=== PATIENT | female | born 1985 | race Caucasian/White ===

== ENCOUNTER 2017-03-06 09:49 | Outpatient (CLI) | payer BC ==
--- NOTE | 2017-03-06 12:47 | MRI ---
BRAIN MRI WITH AND WITHOUT CONTRAST: CLINICAL HISTORY: Headache. COMPARISON: No prior comparison. FINDINGS: There is no acute territorial infarction, intracranial mass effect, midline shift, or ventriculomega ly. No hemorrhagic susceptibility present. No evidence of significant signal abnormality of the br ain parenchyma. There are no enhancing intraaxial lesions. There is prominent, circumferential muc osal thickening of the left maxillary sinus with associated enhancement, as well as multifocal ethmo id air cell opacification and enhancement. Mild mucosal inflammation also seen within the frontal a nd sphenoid sinuses. There are bilateral opacified mastoid air cells. IMPRESSION: 1. No acute intracranial abnormalities. 2. Prominent mucosal inflammation with associated complex enhancement, notably involving the left m axillary sinus. Correlate clinically. POS: [facility]
[2017-03-06] MEDS ORDERED: Gadobenate Dimeglumine 529 MG/1 ML (20ML VIAL) ONE (16:42)
== END 2017-03-06 09:50 | disposition home or self-care (01) ==
LOC: MRI 09:49
PROVIDERS: ATTEND Family Medicine
DX: R51 Headache (principal); H53.9 Unspecified visual disturbance; J34.89 Other specified disorders of nose and nasal sinuses
CPT/HCPCS: 70553; A9579